=== PATIENT | female | born 1995 | race Caucasian/White ===

== ENCOUNTER 2018-08-20 02:49 | Inpatient (IN) | payer OTHER ==
[~2018-08-20] VITALS: Ht 162.6 cm; Wt 60.0 kg
--- NOTE | 2018-08-20 02:58 | NUR ---
Pt presents to ed via [facility] c/o "i just dont want to be here anymore. I just want to end the unhappiness." States hx of si since 14 y/o. denies prior attempts on life. has plan of cutting wrists w/ kitchen knife. states has attempted multiple anti-depressants from therapists but "they havent reacted well with my body." pt is a major distress and is crying at bedside. Mother and sister aware of pt here and pt states bf on the way. Pa at bedside for assessment. All belongings taken from pt at this time and placed in 1 of 1 belongings bags in secured locker. roller doors in place. Pt aware of need for ua.
--- NOTE | 2018-08-20 03:11 | NUR ---
Given warm blankets for comfort.
[2018-08-20 03:25] LABS: BASOPHILS # (AUTO) 0.05 x10^3/uL (0-0.1); BASOPHILS % (AUTO) 1 % (0-1); EOSINOPHILS # (AUTO) 0.45 x10^3/uL (0-0.4); EOSINOPHILS % (AUTO) 6 % (1-7); LYMPHOCYTES # (AUTO) 2.15 x10^3/uL (1-3.4); LYMPHOCYTES % (AUTO) 26 % (22-44); MD NO; MEAN CORPUSCULAR HEMOGLOBIN 29.1 pg (27.0-34.8); MEAN CORPUSCULAR HGB CONC 33.4 g/dL (32.4-35.8); MEAN CORPUSCULAR VOLUME 87.1 fL (80-100); MEAN PLATELET VOLUME 10.9 fL (7.4-10.4); MONOCYTES # (AUTO) 0.57 x10^3/uL (0.2-0.8); MONOCYTES % (AUTO) 7 % (2-9); NEUTROPHILS # (AUTO) 4.92 x10^3/uL (1.8-6.8); NEUTROPHILS % (AUTO) 60 % (42-75); PLATELET COUNT 222 x10^3/uL (130-400); RED BLOOD COUNT 4.67 x10^6/uL (3.82-5.3); RED CELL DISTRIBUTION WIDTH 15.9 % (9.6-15.2)
[2018-08-20 03:31] LABS: ALBUMIN 4.1 g/dL (3.4-5.0); ANION GAP 7 mmol/L (5-15); CALCIUM 8.6 mg/dL (8.5-10.1); CHLORIDE 112 mmol/L (98-107); SALICYLATE LEVEL 3.6 mg/dL (2.8-20.0)
[2018-08-20 03:34] LABS: AMPHETAMINE SCREEN, URINE Negative (Negative); BARBITURATE SCREEN, URINE Negative (Negative); BENZODIAZEPINE SCREEN, URINE Negative (Negative); CANNABINOID SCREEN, URINE Positive (Negative); COCAINE SCREEN, URINE Positive (Negative); OPIATE SCREEN, URINE Negative (Negative)
[2018-08-20 03:36] LABS: ACETAMINOPHEN < 2 mcg/mL (10-30)
--- NOTE | 2018-08-20 03:37 | NUR ---
Pt bf at bedside.
[2018-08-20 03:40] LABS: METHADONE SCREEN, URINE Negative (Negative)
--- NOTE | 2018-08-20 04:00 | NUR ---
Pt no longer would like to be here after founding out her inurance is not working. Md notified. Awaiting Md recheck.
[2018-08-20] MEDS ORDERED: NICOTINE 21 MG/24 HR PATCH.TD24 ONE (04:28)
[2018-08-20] MEDS ORDERED: LORazepam 1MG TABLET ONE (04:29)
[2018-08-20] MEDS ORDERED: LORazepam 1MG TABLET PO ONE (04:30)
[2018-08-20] MEDS ORDERED: NICOTINE 21 MG/24 HR PATCH.TD24 TD ONE (04:30)
--- NOTE | 2018-08-20 04:33 | NUR ---
L2K signed by MD at this time. Md at bedside for reevaluation. Pt calmed down and given medications per MAR. No other immediate needs. Bf at bedside.
--- NOTE | 2018-08-20 04:37 | NUR ---
Pt moved to hospital bed at this time.
--- NOTE | 2018-08-20 05:50 | NUR ---
Pt sleeping comfortably on hospital. Nadn. awaiting admit bed.
[2018-08-20] MEDS ORDERED: LORazepam 0.5MG TABLET PO PRN (07:00)
[2018-08-20] MEDS ORDERED: ONDANSETRON ODT 4 MG PO PRN (07:00)
[2018-08-20] MEDS ORDERED: LORazepam 2 MG/ML, 1ML IV PRN ×5 (07:00)
[2018-08-20] MEDS ORDERED: POLYETHYLENE GLYCOL 17 GM PACKET PO PRN (07:00)
[2018-08-20] MEDS ORDERED: ONDANSETRON 2MG/ML, 2ML IVPush PRN (07:00)
[2018-08-20] MEDS ORDERED: LABETALOL 5MG/ML, 20ML IVPush PRN (07:00)
[2018-08-20] MEDS ORDERED: LORazepam 1MG TABLET PO PRN ×4 (07:00)
[2018-08-20 07:59] VITALS: BP 89/56
[2018-08-20 08:04] LABS: FREE T4 (FREE THYROXINE) 0.94 ng/dL (0.76-1.46)
[2018-08-20] MEDS: SENNA/DOCUSATE TABLET PO SCH (09:00)
[2018-08-20] MEDS ORDERED: NICOTINE 14MG/24 HR PATCH.TD24 TD ONE (09:30)
[2018-08-20] MEDS: PANTOPRAZOLE 40 MG IV IVPush SCH (10:06)
[2018-08-20 14:01] VITALS: BP 104/71
[2018-08-20] MEDS ORDERED: DULO30CA2 PO (14:10)
[2018-08-20 20:00] VITALS: BP 105/69
[2018-08-21 02:30] VITALS: BP 100/64
[2018-08-21 05:16] LABS: BASOPHILS # (AUTO) 0.06 x10^3/uL (0-0.1); BASOPHILS % (AUTO) 1 % (0-1); EOSINOPHILS # (AUTO) 0.35 x10^3/uL (0-0.4); EOSINOPHILS % (AUTO) 5 % (1-7); LYMPHOCYTES # (AUTO) 1.49 x10^3/uL (1-3.4); LYMPHOCYTES % (AUTO) 23 % (22-44); MD NO; MEAN CORPUSCULAR HEMOGLOBIN 28.2 pg (27.0-34.8); MEAN CORPUSCULAR HGB CONC 32.1 g/dL (32.4-35.8); MEAN PLATELET VOLUME 11.7 fL (7.4-10.4); MONOCYTES # (AUTO) 0.48 x10^3/uL (0.2-0.8); MONOCYTES % (AUTO) 7 % (2-9); NEUTROPHILS # (AUTO) 4.22 x10^3/uL (1.8-6.8); NEUTROPHILS % (AUTO) 64 % (42-75); PLATELET COUNT 144 x10^3/uL (130-400); RED BLOOD COUNT 4.64 x10^6/uL (3.82-5.3); RED CELL DISTRIBUTION WIDTH 16.2 % (9.6-15.2)
[2018-08-21 05:30] LABS: ALANINE AMINOTRANSFERASE 38 U/L (12-78); ALBUMIN 3.3 g/dL (3.4-5.0); ANION GAP 11 mmol/L (5-15); CALCIUM 8.7 mg/dL (8.5-10.1); CHLORIDE 109 mmol/L (98-107); CREATININE 0.67 mg/dL (0.55-1.02)
[2018-08-21 05:40] LABS: ALKALINE PHOSPHATASE 77 U/L (45-117); BILIRUBIN,TOTAL 0.4 mg/dL (0.2-1.0); THYROID STIMULATING HORMONE 0.923 mIU/L (0.358-3.740); TOTAL PROTEIN 6.8 g/dL (6.4-8.2)
[2018-08-21 07:29] VITALS: BP 97/65
[2018-08-21] MEDS: SENNA/DOCUSATE TABLET PO SCH (08:39)
[2018-08-21] MEDS: PANTOPRAZOLE 40 MG IV IVPush SCH (08:39)
[2018-08-21] MEDS: NICOTINE 14MG/24 HR PATCH.TD24 TD SCH (11:15)
[2018-08-21 16:21] VITALS: BP 93/58
[2018-08-21 19:41] VITALS: BP 104/68
[2018-08-22 00:12] VITALS: BP 97/57
[2018-08-22 06:12] LABS: ALBUMIN 3.6 g/dL (3.4-5.0); ANION GAP 5 mmol/L (5-15); CHLORIDE 109 mmol/L (98-107); CREATININE 0.72 mg/dL (0.55-1.02)
[2018-08-22 07:22] VITALS: BP 99/62
[2018-08-22] MEDS ORDERED: FOLIC ACID 1 MG TABLET PO SCH (09:00)
[2018-08-22] MEDS: SENNA/DOCUSATE TABLET PO SCH ×2 (09:00→10:10)
[2018-08-22] MEDS ORDERED: THIAMINE 100MG TABLET PO SCH (09:00)
[2018-08-22] MEDS: NICOTINE 14MG/24 HR PATCH.TD24 TD SCH (10:03)
[2018-08-22] MEDS: DOXYCYCLINE 100MG TABLET PO SCH ×2 (10:03→21:40)
[2018-08-22] MEDS: PANTOPRAZOLE 40 MG IV IVPush SCH (10:03)
[2018-08-22] MEDS ORDERED: CEFTRIAXONE PMX 1GM/50ML 50 ML IV SCH (13:00)
[2018-08-22 13:18] VITALS: BP 107/70
[2018-08-22 18:48] VITALS: BP 94/62
== END 2018-08-22 23:23 | DRG 881 ==
LOC: ED 03:32 → EDIP 04:56 → 4EST 06:50
PROVIDERS: ADMIT Family Medicine; ATTEND Family Medicine
DX: F32.9 Major depressive disorder, single episode, unspecified (principal); F10.239 Alcohol dependence with withdrawal, unspecified; R45.851 Suicidal ideations; F10.229 Alcohol dependence with intoxication, unspecified; F12.10 Cannabis abuse, uncomplicated; F14.10 Cocaine abuse, uncomplicated; F17.200 Nicotine dependence, unspecified, uncomplicated; F43.10 Post-traumatic stress disorder, unspecified; Z91.14 Patient's other noncompliance with medication regimen
CPT/HCPCS: 36415; 80048; 80053; 80074; 80307; 80329; 82040; 83735; 84100; 84439; 84443; 84703; 85025; 86592; 87491; 87591; 87806; 99285; G0378; J0696; C9113; G0475; G0480

== ENCOUNTER 2018-10-30 05:40 | Emergency (ER) | payer SELFPAY ==
[~2018-10-30] VITALS: Ht 162.6 cm; Wt 55.0 kg
[~2018-10-30 05:40] MED LIST: DULO30CA2 PO
[2018-10-30 05:52] VITALS: BP 107/73
[2018-10-30] MEDS ORDERED: L.E.T SOLUTION TP ONE ×2 (06:29→06:30)
--- NOTE | 2018-10-30 06:57 | NUR ---
REPORT TO SOFI Vallejo RN.
--- NOTE | 2018-10-30 07:15 | NUR ---
PT WITH DISCHARGE ORDERS. WHEN GIVING INSTRUCTIONS TO PT, SHE STATES "ARE THEY SUPPOSED TO CLEAN THAT, BECAUSE THEY DIDNT" THIS RN ASKED THE PT IF SHE WOULD LIKE ME TO REMOVE HER BANDAGE AND CLEAN THE WOUND AND REAPPLY THE BANDAGE SHE STATES "NO THATS OK ILL DO IT THE NEXT TIME I CHANGE THE BANDAGE" PT ESCORTED TO CHECK OUT
== END 2018-10-30 07:21 | disposition home or self-care (01) ==
LOC: ED 07:08
DX: S91.111A Laceration without foreign body of right great toe without damage to nail, initial encounter (principal); F32.9 Major depressive disorder, single episode, unspecified; X58.XXXA Exposure to other specified factors, initial encounter; Y93.89 Activity, other specified; Y92.009 Unspecified place in unspecified non-institutional (private) residence as the place of occurrence of the external cause; Y99.8 Other external cause status
CPT/HCPCS: 99282; 99283